=== PATIENT | male | born 1995 | race Caucasian/White ===

== ENCOUNTER 2022-06-21 16:36 | Emergency (ER) | payer SELFPAY | END 2022-06-21 17:52 | disposition left against medical advice (07) | LOC: DL.ED 16:36 | DX: Z53.21 Procedure and treatment not carried out due to patient leaving prior to being seen by health care provider (principal) ==

== ENCOUNTER 2022-12-11 09:35 | Emergency (ER) | payer BC ==
[2022-12-11] MEDS ORDERED: prednisoLONE Acetate 1% Ophth Susp 5 ML Bottle EYEBOTH ONE (10:01)
[2022-12-11] MEDS ORDERED: Take Home: predniSONE 20 MG, 4 Tab Pack PO ONE (11:02)
[2022-12-11] MEDS ORDERED: Take Home: Ondansetron 4 MG Tab.DIS, 5 Tab Pack PO ONE (11:02)
== END 2022-12-11 11:20 | disposition home or self-care (01) ==
LOC: DL.ED 09:35
DX: B30.9 Viral conjunctivitis, unspecified (principal); E66.9 Obesity, unspecified; Z68.43 Body mass index [BMI] 50.0-59.9, adult; Z20.822 Contact with and (suspected) exposure to COVID-19; Z91.018 Allergy to other foods
CPT/HCPCS: 36415; 86308; 87081; 87430; 87635; 87804; 99283; A9270; Q0162; U0002